=== PATIENT | female | born 1945 | race Asian ===

== ENCOUNTER 2023-09-12 15:16 | Inpatient (IN) | payer MEDICARE, OTHER ==
[~2023-09-12] VITALS: Ht 162.6 cm; Wt 57.5 kg
[2023-09-12] MEDS ORDERED: SODIUM CHLORIDE 0.9% 100 ML ONE (15:48)
[2023-09-12] MEDS ORDERED: 0.9% SODIUM CHLORIDE 10 ML SYRINGE IVP ONE (15:48)
[2023-09-12] MEDS ORDERED: IOHEXOL 350 MG/ML 100 ML VIAL ONE (15:48)
[2023-09-12 16:00] LABS: BASOPHILS % (AUTO) 0.4 % (0.0-2.0); EOSINOPHILS % (AUTO) 1.4 % (1.0-6.0); HEMATOCRIT 40.6 % (36-46); HEMOGLOBIN 14.1 g/dL (12.0-16.0); LYMPHOCYTES # (AUTO) 3.1 K/uL (1.0-4.8); LYMPHOCYTES % (AUTO) 33.5 % (22.0-44.0); MEAN CORPUSCULAR HEMOGLOBIN 31.7 pg (26.0-34.0); MEAN CORPUSCULAR HGB CONC 34.7 G/dL (31.0-37.0); MEAN CORPUSCULAR VOLUME 92 fL (80-100); MONOCYTES # (AUTO) 0.7 K/uL (0.1-1.0); MONOCYTES % (AUTO) 7.1 % (2.0-9.0); NEUTROPHILS # (AUTO) 5.4 K/uL (1.8-7.7); NEUTROPHILS % (AUTO) 57.6 % (40.0-70.0); PLATELET COUNT (AUTO) 255 K/uL (150-450); RED BLOOD CELL COUNT(AUTO) 4.44 MIL/uL (4.00-5.20); RED CELL DISTRIBUTION WIDTH 13.1 % (11.5-14.5); WHITE BLOOD COUNT (AUTO) 9.3 K/uL (4.5-11.0)
[2023-09-12 16:08] LABS: CALCIUM, TOTAL 9.2 mg/dL (8.8-10.5); CREATININE 1.13 mg/dL (0.60-1.30); POTASSIUM 3.4 mmol/L (3.5-5.1)
[2023-09-12 16:11] LABS: INR 0.9 (0.9-1.1); PROTHROMBIN TIME 9.8 SEC (9.4-11.6)
[2023-09-12 16:14] LABS: ALBUMIN 3.6 g/dL (3.4-5.0); BILIRUBIN,TOTAL 0.7 mg/dL (0.1-1.0); TOTAL PROTEIN, SERUM 7.9 g/dL (6.4-8.2)
[2023-09-12 16:18] LABS: TROPONIN I-HIGH SENSITIVITY 8 ng/L (<51)
[2023-09-12] MEDS: POTASSIUM CHLORIDE 20 MEQ ER TABLET PO ONE (17:23)
[2023-09-12] MEDS: ASPIRIN 81 MG CHEWABLE TABLET PO ONE (17:23)
[2023-09-12] MEDS ORDERED: ACETAMINOPHEN 325 MG TABLET PO PRN (18:00)
[2023-09-12] MEDS ORDERED: POTASSIUM CHLORIDE 20 MEQ ER TABLET PO PRN (18:15)
[2023-09-12] MEDS ORDERED: POTASSIUM CHL 10 MEQ/WATER 50 ML IV PRN (18:15)
[2023-09-12 18:40] LABS: THYROID STIMULATING HORMONE 0.39 uIU/mL (0.36-3.74)
[2023-09-12 19:46] LABS: APPEARANCE,URINE CLEAR (CLEAR); BILIRUBIN,URINE NEGATIVE (NEGATIVE); COLOR,URINE LIGHT YELLOW (YELLOW); GLUCOSE, URINE (UA) NEGATIVE (NEGATIVE); KETONES,URINE NEGATIVE (NEGATIVE); LEUKOCYTE ESTERASE ,URINE NEGATIVE (NEGATIVE); OCCULT BLOOD,URINE NEGATIVE (NEGATIVE); PROTEIN,URINE NEGATIVE (NEGATIVE); UROBILINOGEN,URINE <=1.0 mg/dL (<=1.0)
[2023-09-12 19:54] LABS: ALCOHOL, URINE DRUG SCREEN NEGATIVE (NEGATIVE); AMPHET/METH SCREEN,URINE NEGATIVE (NEGATIVE); BARBITURATE SCREEN, URINE NEGATIVE (NEGATIVE); BENZODIAZEPINES SCREEN,URINE NEGATIVE (NEGATIVE); CANNABINOID SCREEN,URINE NEGATIVE (NEGATIVE); COCAINE SCREEN,URINE NEGATIVE (NEGATIVE); METHADONE SCREEN, URINE NEGATIVE (NEGATIVE); OPIATE SCREEN,URINE NEGATIVE (NEGATIVE); PHENCYCLIDINE SCREEN,URINE NEGATIVE (NEGATIVE)
[2023-09-12 19:57] LABS: BACTERIA,URINE Many /HPF (None Seen); NITRATE,URINE POSITIVE (NEGATIVE); RBC,URINE 0-2 /HPF (0-2); SQUAMOUS EPITHELIAL CELL,UR Few /LPF (None Seen); WBC,URINE 0-2 /HPF (0-5)
[2023-09-12] MEDS: DOCUSATE SODIUM 100 MG CAPSULE PO SCH (20:57)
[2023-09-12] MEDS: ATORVASTATIN CALCIUM 40 MG TABLET PO SCH (20:57)
[2023-09-12 21:27] VITALS: BP 159/76; PULSE 86; RESP 18; TEMP 98.8
[2023-09-12 22:10] LABS: TROPONIN I-HIGH SENSITIVITY 223 ng/L (<51)
[2023-09-12] MEDS: HEPARIN SODIUM,PORCINE 5,000 UNITS/ML VIAL SQ SCH (23:56)
[2023-09-13] VITALS: BP 155/79; PULSE 74; RESP 17; TEMP 98.4
[2023-09-13 04:00] VITALS: BP 147/79; PULSE 72; RESP 17; TEMP 98.5
[2023-09-13 07:16] LABS: ANION GAP 8 mmol/L (8-16); CALCIUM, TOTAL 9.6 mg/dL (8.8-10.5); CARBON DIOXIDE 26 mmol/L (22-29); CHLORIDE 104 mmol/L (98-107); CHOL/HDL RATIO 3.4 (3.9-5.7); CHOLESTEROL 251 mg/dL (131-200); CREATININE 0.87 mg/dL (0.60-1.30); GLOMERULAR FILTR. RATE CALC > 60 mL/min (>60); GLUCOSE,RANDOM 93 mg/dL (70-110); HDL CHOLESTEROL 73 mg/dL (40-60); LDL CHOL (CALC.) 158 mg/dL (0-130); POTASSIUM 3.6 mmol/L (3.5-5.1); SODIUM SERUM 138 mmol/L (136-145); TRIGLYCERIDES 98 mg/dL (15-150); UREA NITROGEN, BLOOD 19 mg/dL (7-18)
[2023-09-13 07:29] LABS: TROPONIN I-HIGH SENSITIVITY 243 ng/L (<51)
[2023-09-13] MEDS: ASPIRIN 81 MG CHEWABLE TABLET PO SCH (08:06)
[2023-09-13] MEDS: FAMOTIDINE 20 MG TABLET PO SCH (08:06)
[2023-09-13] MEDS: CLOPIDOGREL BISULFATE 75 MG TABLET PO SCH (08:06)
[2023-09-13 08:26] VITALS: BP 157/79; PULSE 69; RESP 19; TEMP 98.4
[2023-09-13 11:50] VITALS: BP 164/83; PULSE 79; RESP 18; TEMP 98
[2023-09-13] MEDS: LOSARTAN POTASSIUM 25 MG TABLET PO SCH (11:55)
[2023-09-13] MEDS: ATORVASTATIN CALCIUM 40 MG TABLET PO SCH (11:55)
[2023-09-13 15:48] VITALS: BP 157/77; PULSE 78; RESP 19; TEMP 98.4
[2023-09-13 20:00] VITALS: BP 148/79; PULSE 63; RESP 19; TEMP 98.4
[2023-09-14] VITALS (7 sets, daily range): BP systolic 134–166; BP diastolic 52–83; PULSE 59–80; RESP 17–18; TEMP 97.9–98.5
[2023-09-14] MEDS: ASPIRIN 81 MG CHEWABLE TABLET PO SCH (08:14)
[2023-09-14] MEDS ORDERED: LOSA-381 PO (12:34)
[2023-09-14] MEDS ORDERED: ASPI81TA87 PO (12:34)
[2023-09-14] MEDS ORDERED: ATOR40TA28 PO (12:35)
[2023-09-15 01:09] VITALS: BP 130/75; PULSE 70; RESP 17; TEMP 98.1
[2023-09-15 04:00] VITALS: BP 157/68; PULSE 74; RESP 18; TEMP 98.3
[2023-09-15 07:41] VITALS: BP 147/79; PULSE 71; RESP 19; TEMP 98
[2023-09-15] MEDS: OxyCODONE HCL/ACETAMINOPHEN 5-325 MG TABLET PO PRN (08:08)
[2023-09-15 10:45] VITALS: BP 162/78; PULSE 68; RESP 18; TEMP 98.2
[2023-09-15] MEDS: MORPHINE SULFATE 2 MG/ML SYRINGE IVP PRN (11:04)
[2023-09-15 15:08] VITALS: BP 152/83; PULSE 75; RESP 19; TEMP 98.2
[2023-09-15 20:00] VITALS: BP 165/63; PULSE 70; RESP 16; TEMP 97.5
[2023-09-16] VITALS: BP 135/76; PULSE 69; RESP 16; TEMP 97.5
[2023-09-16 04:00] VITALS: BP 151/72; PULSE 67; RESP 16; TEMP 97.5
[2023-09-16 07:37] VITALS: BP 136/74; PULSE 74; RESP 18; TEMP 98
[2023-09-16 11:29] VITALS: BP 134/93; PULSE 65; RESP 18; TEMP 98
[2023-09-16] MEDS ORDERED: SESTAMIBI TC99M/UD ISOTOPE 1 EA INJ INJ ONE ×2 (12:15→17:05)
[2023-09-16 13:29] LABS: BASOPHILS % (AUTO) 0.7 % (0.0-2.0); EOSINOPHILS % (AUTO) 0.5 % (1.0-6.0); HEMATOCRIT 40.8 % (36-46); HEMOGLOBIN 13.8 g/dL (12.0-16.0); LYMPHOCYTES # (AUTO) 1.6 K/uL (1.0-4.8); MEAN CORPUSCULAR HEMOGLOBIN 31.1 pg (26.0-34.0); MEAN CORPUSCULAR HGB CONC 33.9 G/dL (31.0-37.0); MEAN CORPUSCULAR VOLUME 92 fL (80-100); MONOCYTES # (AUTO) 0.3 K/uL (0.1-1.0); MONOCYTES % (AUTO) 5.8 % (2.0-9.0); NEUTROPHILS # (AUTO) 3.3 K/uL (1.8-7.7); PLATELET COUNT (AUTO) 261 K/uL (150-450); RED BLOOD CELL COUNT(AUTO) 4.45 MIL/uL (4.00-5.20); RED CELL DISTRIBUTION WIDTH 13.3 % (11.5-14.5); WHITE BLOOD COUNT (AUTO) 5.3 K/uL (4.5-11.0)
[2023-09-16] MEDS ORDERED: 0.9% SODIUM CHLORIDE 10 ML SYRINGE IVP ONE (13:34)
[2023-09-16] MEDS ORDERED: IOHEXOL 350 MG/ML 100 ML VIAL ONE (13:34)
[2023-09-16] MEDS ORDERED: SODIUM CHLORIDE 0.9% 100 ML ONE (13:34)
[2023-09-16 13:37] LABS: ANION GAP 10 mmol/L (8-16); CALCIUM, TOTAL 8.8 mg/dL (8.8-10.5); CARBON DIOXIDE 24 mmol/L (22-29); CHLORIDE 104 mmol/L (98-107); CREATININE 0.92 mg/dL (0.60-1.30); GLOMERULAR FILTR. RATE CALC 59 mL/min (>60); GLUCOSE,RANDOM 113 mg/dL (70-110); POTASSIUM 3.6 mmol/L (3.5-5.1); SODIUM SERUM 138 mmol/L (136-145); UREA NITROGEN, BLOOD 14 mg/dL (7-18)
[2023-09-16 13:41] LABS: PROTHROMBIN TIME 10.2 SEC (9.4-11.6)
[2023-09-16 13:44] LABS: ALANINE AMINOTRANSFERASE 19 U/L (12-78); ALBUMIN 3.3 g/dL (3.4-5.0); ALKALINE PHOSPHATASE 109 U/L (46-116); ASPARTATE AMINOTRANSFERASE 16 U/L (15-37); BILIRUBIN,TOTAL 0.7 mg/dL (0.1-1.0); TOTAL PROTEIN, SERUM 7.3 g/dL (6.4-8.2); TROPONIN I-HIGH SENSITIVITY 35 ng/L (<51)
[2023-09-16] MEDS ORDERED: HEPARIN SODIUM,PORCINE 5,000 UNITS/ML VIAL IVP PRN ×2 (13:45)
[2023-09-16] MEDS: REGADENOSON 0.4 MG/5 ML PF SYRINGE IVP ONE (14:41)
[2023-09-16] MEDS: HEPARIN SODIUM 25000 UNITS/D5W 250 ML IV PRN (15:08)
[2023-09-16 16:00] VITALS: BP 147/64; PULSE 82; RESP 16; TEMP 97.9
[2023-09-16] MEDS ORDERED: REGADENOSON 0.4 MG/5 ML PF SYRINGE IVP ONE (19:04)
[2023-09-16 19:56] LABS: TROPONIN I-HIGH SENSITIVITY 37 ng/L (<51)
[2023-09-16 20:00] VITALS: BP 153/76; PULSE 78; RESP 16; TEMP 99.1
[2023-09-16 20:10] LABS: GLUCOMETER DEV NAME(LOC) 5N.1D; GLUCOSE,POINT OF CARE 127 MG/DL (70-110)
[2023-09-17] VITALS: BP 150/74; PULSE 68; RESP 13; TEMP 98.7
[2023-09-17 04:00] VITALS: BP 148/76; PULSE 70; RESP 11; TEMP 98.6
[2023-09-17 04:40] LABS: BASOPHILS % (AUTO) 0.5 % (0.0-2.0); EOSINOPHILS % (AUTO) 1.5 % (1.0-6.0); HEMATOCRIT 40.4 % (36-46); HEMOGLOBIN 13.7 g/dL (12.0-16.0); LYMPHOCYTES # (AUTO) 1.8 K/uL (1.0-4.8); LYMPHOCYTES % (AUTO) 25.1 % (22.0-44.0); MEAN CORPUSCULAR HEMOGLOBIN 31.1 pg (26.0-34.0); MEAN CORPUSCULAR HGB CONC 33.9 G/dL (31.0-37.0); MEAN CORPUSCULAR VOLUME 92 fL (80-100); MONOCYTES # (AUTO) 0.5 K/uL (0.1-1.0); MONOCYTES % (AUTO) 7.4 % (2.0-9.0); NEUTROPHILS # (AUTO) 4.6 K/uL (1.8-7.7); NEUTROPHILS % (AUTO) 65.5 % (40.0-70.0); PLATELET COUNT (AUTO) 261 K/uL (150-450); RED CELL DISTRIBUTION WIDTH 12.9 % (11.5-14.5)
[2023-09-17 04:48] LABS: ANION GAP 7 mmol/L (8-16); CALCIUM, TOTAL 8.9 mg/dL (8.8-10.5); CARBON DIOXIDE 28 mmol/L (22-29); CHLORIDE 101 mmol/L (98-107); CREATININE 0.84 mg/dL (0.60-1.30); GLOMERULAR FILTR. RATE CALC > 60 mL/min (>60); GLUCOSE,RANDOM 97 mg/dL (70-110); POTASSIUM 3.5 mmol/L (3.5-5.1); SODIUM SERUM 136 mmol/L (136-145); UREA NITROGEN, BLOOD 15 mg/dL (7-18)
[2023-09-17 04:56] LABS: TROPONIN I-HIGH SENSITIVITY 34 ng/L (<51)
[2023-09-17 08:00] VITALS: BP 128/73; PULSE 76; RESP 16; TEMP 98.1
[2023-09-17 12:00] VITALS: BP 136/77; PULSE 73; RESP 26; TEMP 98.8
[2023-09-17 16:00] VITALS: BP 118/70; PULSE 81; RESP 19; TEMP 98.8
[2023-09-17 20:00] VITALS: BP 123/65; PULSE 82; RESP 16; TEMP 98.1
[2023-09-18] VITALS: BP 123/69; PULSE 69; RESP 13; TEMP 98.5
[2023-09-18 04:00] VITALS: BP 117/63; PULSE 72; RESP 16; TEMP 98.6
[2023-09-18 08:00] VITALS: BP 162/79; PULSE 81; RESP 13; TEMP 98.9
[2023-09-18] MEDS: CLOPIDOGREL BISULFATE 75 MG TABLET PO SCH (08:20)
[2023-09-18 12:00] VITALS: BP 146/82; PULSE 88; RESP 19; TEMP 98.2
[2023-09-18] MEDS ORDERED: IOHEXOL 350 MG/ML 100 ML VIAL ONE (14:55)
[2023-09-18] MEDS ORDERED: SODIUM CHLORIDE 0.9% 100 ML ONE (14:56)
[2023-09-18] MEDS ORDERED: HEPARIN SODIUM,PORCINE 5,000 UNITS/ML VIAL IVP PRN ×2 (15:30)
[2023-09-18 16:00] VITALS: BP 135/46; PULSE 80; RESP 17; TEMP 98.5
[2023-09-18] MEDS: HEPARIN SODIUM 25000 UNITS/D5W 250 ML IV PRN (16:00)
[2023-09-18] MEDS: DOPamine 400MG/D5W[STANDARD] 250 ML IV PRN (16:00)
[2023-09-18 16:22] LABS: BASOPHILS % (AUTO) 0.4 % (0.0-2.0); EOSINOPHILS % (AUTO) 0.9 % (1.0-6.0); HEMATOCRIT 39.9 % (36-46); HEMOGLOBIN 13.6 g/dL (12.0-16.0); LYMPHOCYTES # (AUTO) 1.3 K/uL (1.0-4.8); LYMPHOCYTES % (AUTO) 19.6 % (22.0-44.0); MEAN CORPUSCULAR HEMOGLOBIN 31.1 pg (26.0-34.0); MEAN CORPUSCULAR VOLUME 91 fL (80-100); MONOCYTES # (AUTO) 0.5 K/uL (0.1-1.0); MONOCYTES % (AUTO) 7.2 % (2.0-9.0); NEUTROPHILS # (AUTO) 4.8 K/uL (1.8-7.7); NEUTROPHILS % (AUTO) 71.9 % (40.0-70.0); PLATELET COUNT (AUTO) 256 K/uL (150-450); RED BLOOD CELL COUNT(AUTO) 4.36 MIL/uL (4.00-5.20); WHITE BLOOD COUNT (AUTO) 6.7 K/uL (4.5-11.0)
[2023-09-18 16:34] LABS: PROTHROMBIN TIME 10.3 SEC (9.4-11.6)
[2023-09-18] MEDS: PHENYLEPHRINE 200 MG/D5%-WATER 250 ML IV PRN (17:02)
[2023-09-18 17:58] LABS: APPEARANCE,URINE HAZY (CLEAR); BILIRUBIN,URINE NEGATIVE (NEGATIVE); COLOR,URINE YELLOW (YELLOW); GLUCOSE, URINE (UA) NEGATIVE (NEGATIVE); KETONES,URINE TRACE mg/dL (NEGATIVE); LEUKOCYTE ESTERASE ,URINE LARGE (NEGATIVE); NITRATE,URINE POSITIVE (NEGATIVE); OCCULT BLOOD,URINE NEGATIVE (NEGATIVE); PH,URINE 5.5 (5.0-8.0); PROTEIN,URINE TRACE mg/dL (NEGATIVE); SPECIFIC GRAVITIY, URINE 1.025 (1.003-1.030); UROBILINOGEN,URINE <=1.0 mg/dL (<=1.0)
[2023-09-18 18:18] LABS: BACTERIA,URINE Many /HPF (None Seen); RBC,URINE None Seen /HPF (0-2); WBC,URINE 26-50 /HPF (0-5)
== END 2023-09-18 19:05 | disposition short-term general hospital (02) | DRG 45 ==
LOC: EMS 15:16 → EDH 17:50 → 5N 21:25 → ICU 09-16 13:10
PROVIDERS: ADMIT Internal Medicine; ATTEND Internal Medicine
DX: I63.9 Cerebral infarction, unspecified (principal); G81.94 Hemiplegia, unspecified affecting left nondominant side; E04.1 Nontoxic single thyroid nodule; I10 Essential (primary) hypertension; R73.9 Hyperglycemia, unspecified; E78.5 Hyperlipidemia, unspecified; J98.4 Other disorders of lung; R29.702 NIHSS score 2; M54.9 Dorsalgia, unspecified; I65.01 Occlusion and stenosis of right vertebral artery; I65.23 Occlusion and stenosis of bilateral carotid arteries; Z79.899 Other long term (current) drug therapy
CPT/HCPCS: 70496; 70498; 70544; 70547; 70551; 71045; 76536; 78452; 80048; 80053; 80061; 80307; 81001; 82962; 83605; 84443; 84484; 85025; 85610; 85730; 87086; 87186; 92610; 93005; 93306; 93880; 97110; 97116; 97163; 97165; 97168; 97530; 97535; 99285; A9500; J1265; J1644; J2270; J2370; J2785; J7050; 36415-L1; 36415-TC; 70450; 70450-TC